=== PATIENT | male | born 1995 | race African-American/Black ===

== ENCOUNTER 2017-03-20 11:10 | Emergency (ER) | payer MEDICAID ==
[~2017-03-20] VITALS: Ht 162.6 cm; Wt 54.0 kg
[2017-03-20] MEDS ORDERED: ONDANSETRON 4MG ODT PO ONE (13:15)
[2017-03-20 14:16] VITALS: BP 120/78
[2017-03-20 14:18] LABS: CLARITY URINE CLEAR (CLEAR); COLOR URINE YELLOW (YELLOW); GLUCOSE URINE NEGATIVE (NEGATIVE); KETONES URINE NEGATIVE (NEGATIVE); LEUKOCYTE ESTERASE URINE NEGATIVE (NEGATIVE); NITRITE URINE NEGATIVE (NEGATIVE); OCCULT BLOOD URINE NEGATIVE (NEGATIVE); PH URINE 7.5 (4.5-8.0); PROTEIN URINE NEGATIVE (NEGATIVE); SPECIFIC GRAVITY URINE 1.008 (1.005-1.030); UROBILINOGEN URINE 0.2 E.U./dL (0.2-1.0)
== END 2017-03-20 15:02 | disposition home or self-care (01) ==
LOC: ER 13:47
DX: R47.02 Dysphasia (principal); R07.0 Pain in throat; F12.10 Cannabis abuse, uncomplicated; N39.0 Urinary tract infection, site not specified; F41.9 Anxiety disorder, unspecified
CPT/HCPCS: 70360; 81003; 99285